=== PATIENT | male | born 1980 ===

== ENCOUNTER 2016-08-30 13:28 | Emergency (ER) | payer OTHER ==
[2016-08-30 13:28] VITALS: BMI 26.2
[2016-08-30 13:36] VITALS: BP 149/86; PULSE 86; RESP 16; TEMP 97; O2SAT 98
[2016-08-30] MEDS ORDERED: Sodium Chloride 0.9% 1,000 ML IV STA (15:15)
--- NOTE | 2016-08-30 16:17 | ED PDOC ---
HPI: General Adult Time Seen by Provider: 08/30/16 15:14 Chief Complaint (Nursing): Abdominal Pain Chief Complaint (Provider): abdominal pain History Per: Patient History/Exam Limitations: no limitations Additional Complaint(s): 36yo male comes to the ED complaining of abdominal pain for 2 weeks. He has dizziness but no vomit or diarrhea. Past Medical History Reviewed: Historical Data, Nursing Documentation, Vital Signs Vital Signs: Last Vital Signs Temp 97.0 F L 08/30/16 13:32 Pulse 86 08/30/16 13:32 Resp 16 08/30/16 13:32 BP 149/86 08/30/16 13:32 Pulse Ox 98 08/30/16 16:25 - Medical History PMH: Gastritis Denies: Diabetes, HTN, Chronic Kidney Disease - Surgical History Surgical History: No Surg Hx - Family History Family History: States: Unknown Family Hx - Home Medications Home Medications: Ambulatory Orders Medication Instructions Recorded Dicyclomine [Dicyclomine HCl] 10 mg PO TID #20 cap 02/29/16 Dicyclomine [Dicyclomine HCl] 10 mg PO DAILY #10 cap 03/22/16 Famotidine [Pepcid] 20 mg PO BID #20 tab 03/22/16 Dicyclomine [Dicyclomine HCl] 10 mg PO TID #10 cap 08/30/16 Pantoprazole Sodium [Protonix] 40 mg PO DAILY #30 tablet. 08/30/16 - Allergies Allergies/Adverse Reactions: Allergies Allergy/AdvReac Type Severity Reaction Status Date / Time No Known Allergies Allergy Verified 08/30/16 13:32 Review of Systems ROS Statement: Except As Marked, All Systems Reviewed And Found Negative Gastrointestinal: Positive for: Abdominal Pain. Negative for: Vomiting, Diarrhea Neurological: Positive for: Dizziness Physical Exam - Reviewed Nursing Documentation Reviewed: Yes Vital Signs Reviewed: Yes - Physical Exam Appears: Positive for: Well, Non-toxic, No Acute Distress Head Exam: Positive for: ATRAUMATIC, NORMAL INSPECTION, NORMOCEPHALIC Skin: Positive for: Warm, Dry Eye Exam: Positive for: EOMI, PERRL Cardiovascular/Chest: Positive for: Regular Rate, Rhythm Respiratory: Positive for: Normal Breath Sounds. Negative for: Rales, Rhonchi, Wheezing Gastrointestinal/Abdominal: Positive for: Soft, Tenderness (left lower and left upper quadrants). Negative for: Guarding, Rebound Extremity: Positive for: Normal ROM Neurologic/Psych: Positive for: Alert, Oriented - Laboratory Results Result Diagrams: 08/30/16 15:45 08/30/16 15:45 - ECG O2 Sat by Pulse Oximetry: 98 (RA) Pulse Ox Interpretation: Normal Medical Decision Making Medical Decision Makin: CT abd/pel, Labs, IV fluids, pepcid ordered. Disposition - Clinical Impression Clinical Impression: Gastritis - Patient ED Disposition Is Patient to be Admitted: No Counseled Patient/Family Regarding: Studies Performed, Diagnosis, Need For Followup, Rx Given - Disposition Referrals: [facility] [Outside] Disposition: Routine/Home Disposition Time: 18:26 Condition: FAIR Prescriptions: Dicyclomine [Dicyclomine HCl] 10 mg PO TID #10 cap Pantoprazole Sodium [Protonix] 40 mg PO DAILY #30 tablet. Instructions: Gastritis (ED) Print Language: MALDIVIAN Additional Comments - Additional Comments Additional Comments: Documented by Brooks Vance acting as a scribe for Ruiz Hope MD. All medical record entries made by the Scribe were at my direction and personally dictated by me. I have reviewed the chart and agree that the record accurately reflects my personal performance of the history, physical exam, medical decision making, and the department course for this patient. I have also personally directed, reviewed, and agree with the discharge instructions and disposition.
[2016-08-30 16:45] LABS: BASO % 0.5 % (0.0-2.0); EOS # 0.2 K/uL (0.0-0.7); EOS % 3.5 % (0.0-4.0); HEMATOCRIT 42.7 % (35.0-51.0); LYMPH # 1.8 K/uL (1.0-4.3); LYMPH % 27.5 % (20.0-40.0); MEAN CORPUSCULAR HEMOGLOBIN 29.4 pg (27.0-31.0); MEAN CORPUSCULAR HGB CONC 33.5 g/dL (33.0-37.0); MEAN PLATELET VOLUME 8.3 fl (7.2-11.7); MONO # 0.6 K/uL (0.0-0.8); MONO % 9.2 % (0.0-10.0); NEUT # 3.9 K/uL (1.8-7.0); NEUT % 59.3 % (50.0-75.0); RED CELL DISTRIBUTION WIDTH 13.9 % (11.5-14.5); WHITE BLOOD COUNT 6.6 K/uL (4.8-10.8)
[2016-08-30 17:01] LABS: ALB/GLOB RATIO 1.4 (1.0-2.1); ALKALINE PHOSPHATASE 98 U/L (38-126); ALT/SGPT 49 U/L (21-72); AST/SGOT 38 U/L (17-59); BILIRUBIN,TOTAL 0.6 mg/dl (0.2-1.3); BLOOD UREA NITROGEN 11 mg/dl (9-20); CALCIUM 9.1 mg/dL (8.4-10.2); CARBON DIOXIDE 25 mmol/L (22-30); CHLORIDE 103 mmol/L (98-107); GFR AFRICAN-AMERICAN > 60; GLUCOSE,RANDOM 110 mg/dL (75-110); SODIUM 143 mmol/l (132-148)
[2016-08-30] MEDS ORDERED: Sodium Chloride 0.9% 50 ML IV ONE (17:16)
[2016-08-30] MEDS ORDERED: Iohexol 300 100 ML IJ ONE (17:16)
--- NOTE | 2016-08-30 18:19 | CT ---
PROCEDURE: CT Abdomen and Pelvis with contrast HISTORY: Left SIDED ABD PAIN COMPARISON: 02/24/2016. TECHNIQUE: Contrast dose: 95 cc Omnipaque 300 Radiation dose: Total exam DLP = 570.22 mGy-cm. FINDINGS: LOWER THORAX: Unremarkable. LIVER: Unremarkable. No gross lesion or ductal dilatation. GALLBLADDER AND BILE DUCTS: Unremarkable. PANCREAS: Unremarkable. No gross lesion or ductal dilatation. SPLEEN: Unremarkable. ADRENALS: Unremarkable. No mass. KIDNEYS AND URETERS: Unremarkable. No hydronephrosis. No solid mass. VASCULATURE: Unremarkable. No aortic aneurysm. BOWEL: Unremarkable. No obstruction. No gross mural thickening. APPENDIX: Normal appendix. PERITONEUM: Unremarkable. No free fluid. No free air. LYMPH NODES: Unremarkable. No enlarged lymph nodes. BLADDER: Unremarkable. REPRODUCTIVE: Unremarkable. BONES: No acute fracture. OTHER FINDINGS: None. IMPRESSION: No significant or acute findings to account for/ related to the clinical presentation.
== END 2016-08-30 18:54 | disposition home or self-care (01) ==
LOC: H.ER 13:28
DX: K29.70 Gastritis, unspecified, without bleeding (principal)

== ENCOUNTER 2017-01-15 16:35 | Emergency (ER) | payer OTHER ==
[2017-01-15 16:35] VITALS: BMI 26.2
[2017-01-15 16:50] VITALS: TEMP 98.3; O2SAT 99
[2017-01-15] MEDS ORDERED: Sodium Chloride 0.9% 1,000 ML IV STA (17:00)
[2017-01-15] MEDS ORDERED: Alum-Mag Hydrox-Simethicone Susp (30 mL) PO ONE (17:01)
--- NOTE | 2017-01-15 17:04 | ED PDOC ---
HPI: Abdomen Time Seen by Provider: 01/15/17 16:53 Chief Complaint (Nursing): Abdominal Pain Chief Complaint (Provider): Abd pain History Per: Patient History/Exam Limitations: no limitations Onset/Duration Of Symptoms: Days (2 weeks) Outside of [place] travel?: No Current Symptoms Are (Timing): Still Present Additional Complaint(s): Pt. with burning pain epigastric and LUQ. 2 weeks. Has had same pain in the past multiple times and has come here for it as well. No weakness. States goes to the back. Feels it more when eating. No alcohol or drugs. No lower abd pain. No weakness, chest pain, fever, cough, dyspnea, dysuria. No new food or drinks. Past Medical History Reviewed: Nursing Documentation, Vital Signs Vital Signs: Last Vital Signs Temp 98.3 F 01/15/17 16:48 Pulse 60 01/15/17 16:48 Resp BP Pulse Ox 99 01/15/17 17:05 - Medical History PMH: Gastritis Denies: Diabetes, HTN, Chronic Kidney Disease - Family History Family History: States: Unknown Family Hx - Social History Current smoker - smoking cessation education provided: No Alcohol: None Drugs: Denies - Home Medications Home Medications: Ambulatory Orders Medication Instructions Recorded Dicyclomine [Dicyclomine HCl] 10 mg PO TID #20 cap 02/29/16 Dicyclomine [Dicyclomine HCl] 10 mg PO DAILY #10 cap 03/22/16 Famotidine [Pepcid] 20 mg PO BID #20 tab 03/22/16 Dicyclomine [Dicyclomine HCl] 10 mg PO TID #10 cap 08/30/16 Pantoprazole Sodium [Protonix] 40 mg PO DAILY #30 tablet. 08/30/16 Famotidine [Pepcid] 20 mg PO DAILY PRN #6 tab 01/15/17 - Allergies Allergies/Adverse Reactions: Allergies Allergy/AdvReac Type Severity Reaction Status Date / Time No Known Allergies Allergy Verified 08/30/16 13:32 Review of Systems ROS Statement: Except As Marked, All Systems Reviewed And Found Negative Gastrointestinal: Positive for: Abdominal Pain Musculoskeletal: Positive for: Back Pain Physical Exam - Reviewed Nursing Documentation Reviewed: Yes Vital Signs Reviewed: Yes - Physical Exam Appears: Positive for: Non-toxic, No Acute Distress Head Exam: Positive for: ATRAUMATIC, NORMAL INSPECTION, NORMOCEPHALIC Skin: Positive for: Normal Color, Warm, DRY Eye Exam: Positive for: EOMI, Normal appearance, PERRL ENT: Positive for: Normal ENT Inspection Neck: Positive for: Normal, Painless ROM Cardiovascular/Chest: Positive for: Regular Rate, Rhythm, Chest Non Tender. Negative for: Edema Respiratory: Positive for: CNT, Normal Breath Sounds Gastrointestinal/Abdominal: Positive for: Bowel Sounds, Soft, Tenderness ( epigastric and LUQ mild), Other (no lower abd tenderness; no RUQ tenderness; no periumbilical tenderness). Negative for: Distended, Guarding, Rebound Back: Positive for: Normal Inspection. Negative for: L CVA Tenderness, R CVA Tenderness Extremity: Positive for: Normal ROM. Negative for: Tenderness, Pedal Edema Neurologic/Psych: Positive for: Alert, Oriented - Laboratory Results Result Diagrams: 01/15/17 17:00 01/15/17 17:00 Interpretation Of Abn Labs: 3.4 k Urine dip results: Negative for: Leukocyte Esterase, Nitrate - ECG ECG: Positive for: Interpreted By Me, Viewed By Me ECG Rhythm: Positive for: Normal QRS, Normal ST Segment, Sinus Rhythm O2 Sat by Pulse Oximetry: 99 Pulse Ox Interpretation: Normal - Progress ED Course And Treament: 1814: Stable. AAOx3. Pain free. Tolerated PO. FU with pcp. Disposition - Clinical Impression Clinical Impression: Hypokalemia, Abdominal pain - Patient ED Disposition Is Patient to be Admitted: No Counseled Patient/Family Regarding: Studies Performed, Diagnosis, Need For Followup, Rx Given - Disposition Referrals: [facility] [Outside] - 01/16/17 Disposition: Routine/Home Disposition Time: 18:16 Condition: STABLE Additional Instructions: Return if not better in 3 days. Prescriptions: Famotidine [Pepcid] 20 mg PO DAILY PRN #6 tab PRN Reason: Pain Instructions: Acute Abdominal Pain (ED), Hypokalemia (ED) Forms: [employer] (Hebrew) Print Language: DANISH
[2017-01-15] MEDS ORDERED: Alum-Mag Hydrox-Simethicone Susp (30 mL) ONE (17:07)
[2017-01-15 17:22] LABS: BASO # 0.1 K/uL (0.0-0.2); BASO % 1.1 % (0.0-2.0); EOS # 0.2 K/uL (0.0-0.7); EOS % 4.2 % (0.0-4.0); HEMOGLOBIN 12.9 g/dL (12.0-18.0); LYMPH # 1.9 K/uL (1.0-4.3); LYMPH % 35.6 % (20.0-40.0); MEAN CELL VOLUME 86.6 fl (80.0-94.0); MEAN CORPUSCULAR HEMOGLOBIN 28.8 pg (27.0-31.0); MEAN CORPUSCULAR HGB CONC 33.2 g/dL (33.0-37.0); MONO # 0.5 K/uL (0.0-0.8); MONO % 8.8 % (0.0-10.0); NEUT # 2.8 K/uL (1.8-7.0); NEUT % 50.3 % (50.0-75.0); RBC 4.48 Mil/uL (4.40-5.90); RED CELL DISTRIBUTION WIDTH 13.8 % (11.5-14.5); WHITE BLOOD COUNT 5.5 K/uL (4.8-10.8)
[2017-01-15 17:34] LABS: ALB/GLOB RATIO 1.6 (1.0-2.1); ALBUMIN 4.3 g/dL (3.5-5.0); ALT/SGPT 60 U/L (21-72); AST/SGOT 29 U/L (17-59); BLOOD UREA NITROGEN 15 mg/dl (9-20); CALCIUM 9.1 mg/dL (8.4-10.2); GFR AFRICAN-AMERICAN > 60; GFR NON-AFRICAN AMERICAN > 60; LIPASE 49 U/L (23-300)
[2017-01-15] MEDS ORDERED: Potassium Chloride 20 mEq ER Tab PO STA (18:08)
[2017-01-15 18:33] VITALS: BP 110/68; PULSE 78; RESP 18
--- NOTE | 2017-01-15 21:47 | CARD ---
APPROVED REPORT EKG Measurement Heart [id number] <Conclusion> Normal sinus rhythm Normal ECG
== END 2017-01-15 18:33 | disposition home or self-care (01) ==
LOC: H.ER 16:35
DX: R10.9 Unspecified abdominal pain (principal); E87.6 Hypokalemia

== ENCOUNTER 2017-02-18 21:32 | Emergency (ER) | payer OTHER, SELFPAY ==
[2017-02-18 21:32] VITALS: BMI 26.2
[2017-02-18 21:46] VITALS: BP 117/70; PULSE 84; RESP 18; TEMP 98; O2SAT 98
--- NOTE | 2017-02-18 21:51 | ED PDOC ---
HPI: General Adult Time Seen by Provider: 02/18/17 21:46 Chief Complaint (Nursing): Cough, Cold, Congestion History Per: Patient Additional Complaint(s): Pt states for the past 2 days he's had cough, congestion, sore throat and tactile fever. Took Tylenol at 1400 today. Denies hemoptysis, chest pain, sick contacts, recent travel. Past Medical History Reviewed: Historical Data, Nursing Documentation, Vital Signs Vital Signs: Last Vital Signs Temp 98 F 02/18/17 21:43 Pulse 84 02/18/17 21:43 Resp 18 02/18/17 21:43 BP 117/70 02/18/17 21:43 Pulse Ox 98 02/18/17 21:50 - Medical History PMH: Gastritis Denies: Diabetes, HTN, Chronic Kidney Disease - Family History Family History: States: No Known Family Hx - Home Medications Home Medications: Ambulatory Orders Medication Instructions Recorded Dicyclomine [Dicyclomine HCl] 10 mg PO TID #20 cap 02/29/16 Dicyclomine [Dicyclomine HCl] 10 mg PO DAILY #10 cap 03/22/16 Famotidine [Pepcid] 20 mg PO BID #20 tab 03/22/16 Dicyclomine [Dicyclomine HCl] 10 mg PO TID #10 cap 08/30/16 Pantoprazole Sodium [Protonix] 40 mg PO DAILY #30 tablet. 08/30/16 Famotidine [Pepcid] 20 mg PO DAILY PRN #6 tab 01/15/17 Benzonatate [Tessalon Perle] 100 mg PO Q8 PRN #30 capsule 02/18/17 Fluticasone Propionate [Flonase] 2 spr NS DAILY PRN #1 bottle 02/18/17 - Allergies Allergies/Adverse Reactions: Allergies Allergy/AdvReac Type Severity Reaction Status Date / Time No Known Allergies Allergy Verified 08/30/16 13:32 Review of Systems ROS Statement: Except As Marked, All Systems Reviewed And Found Negative Constitutional: Positive for: Fever ENT: Positive for: Nose Congestion, Throat Pain Respiratory: Positive for: Cough Physical Exam - Physical Exam Appears: Positive for: Well, Non-toxic, No Acute Distress Skin: Positive for: Normal Color, Warm. Negative for: Rash Eye Exam: Positive for: Normal appearance ENT: Positive for: TM Is/Are (non-erythematous, non-bulging b/l), Nasal Congestion, Pharyngeal Erythema. Negative for: Tonsillar Exudate, Tonsillar Swelling Neck: Positive for: Normal, Painless ROM Cardiovascular/Chest: Positive for: Regular Rate, Rhythm Respiratory: Positive for: CNT, Normal Breath Sounds Gastrointestinal/Abdominal: Positive for: Normal Exam, Soft. Negative for: Tenderness, Organomegaly Back: Positive for: Normal Inspection. Negative for: L CVA Tenderness, R CVA Tenderness - ECG O2 Sat by Pulse Oximetry: 98 - Progress ED Course And Treament: Rapid strep and rapid flu: negative. Disposition - Clinical Impression Clinical Impression: URI (upper respiratory infection) - Patient ED Disposition Is Patient to be Admitted: No - Disposition Referrals: [facility] [Outside] Disposition: Routine/Home Disposition Time: 22:22 Condition: STABLE Prescriptions: Benzonatate [Tessalon Perle] 100 mg PO Q8 PRN #30 capsule PRN Reason: Cough Fluticasone Propionate [Flonase] 2 spr NS DAILY PRN #1 bottle PRN Reason: Allergy Symptoms Instructions: Upper Respiratory Infection (ED) Forms: [employer] (Welsh), [facility] ED School/Work Excuse Print Language: GREENLANDIC
== END 2017-02-18 22:28 | disposition home or self-care (01) ==
LOC: H.ER 21:32
DX: J06.9 Acute upper respiratory infection, unspecified (principal)